=== PATIENT | female | born 1980 | race Caucasian/White ===

== ENCOUNTER 2024-05-08 13:32 | Emergency (ER) | payer OTHER, SELFPAY ==
[2024-05-08] VITALS (8 sets, daily range): BP systolic 110–139; BP diastolic 65–88; PULSE 70–89; RESP 16–18; TEMP 36.6–36.8; O2SAT 98–100; BMI 20.8
--- NOTE | 2024-05-08 13:41 | EKG12_ITS ---
Test Reason : CP Blood Pressure : / mmHG Vent. Rate : 068 BPM Atrial Rate : 068 BPM P-R Int : 138 ms QRS Dur : 074 ms QT Int : 392 ms P-R-T Axes : 029 060 049 degrees QTc Int : 416 ms Normal sinus rhythm Normal ECG Confirmed by Jerrod Pineda ([id number]), television news video editor SURYA LOBATO ([id number]) on 05/09/2024 1:36:51 PM Referred By: Antonio York Confirmed By:Jerrod Pineda
[2024-05-08 14:03] LABS: Absolute Lymphocyte Count 2.01 X10^3/uL (0.83-4.51); Absolute Neutrophil Count 6.4 X10^3/uL (2.0-7.7); Basophil# 0.09 X10^3/uL; Eosinophil# 0.08 X10^3/uL; Eosinophils% 0.9 % (0-5); Hematocrit 49.1 % (37-47); Hemoglobin 16.1 g/dL (12.0-15.0); Lymphocyte # 2.01 X10^3/ul (0.83-4.51); Lymphocyte % 21.7 % (19-41); Mean Corp Hgb Conc 32.8 g/dL (32-36); Mean Corpuscular Hgb 29.6 pg (27.0-32.0); Mean Corpuscular Volume 90.3 fL (81-99); Mean Platelet Vol. 9.4 fl (6.2-12.0); Monocyte# 0.64 X10^3/uL; Monocyte% 6.9 % (0-10); NRBC Flagged by Analyzer 0 % (0-5); Neutrophil % 69.1 % (47-70); Platelet Count 376 K/mm3 (150-450); RBC Distribution Width SD 39.7 fl (35.1-43.9); Red Blood Count 5.44 M/mm3 (4.2-5.4); White Blood Count 9.3 K/mm3 (4.4-11.0)
[2024-05-08 14:25] LABS: Anion Gap 6 (5-15); BUN 10 mg/dL (7-18); BUN/Creat Ratio 14.2 RATIO (10-20); Calcium,Total 9.9 mg/dL (8.5-10.1); Chloride 106 mmol/L (98-107); EST Glomerular Filtration Rate 97 mL/min (>60); Est Glom Filt Rate - Afr Amer 117 mL/min (>60); Estimated Creatinine Clearance 90.41 ml/min; Glucose 95 mg/dL (74-106); Potassium 3.7 mmol/L (3.5-5.1); Sodium Level 139 mmol/L (136-145); Troponin-I HS (w/2H Reflex) < 3 pg/mL (3.0-54.0)
--- NOTE | 2024-05-08 15:30 | RAD_ITS ---
INDICATION: chest pain EXAMINATION/TECHNIQUE: X-RAY - XR Chest 1 View COMPARISON: None. FINDINGS: The lungs are clear. The cardiomediastinal silhouette is unremarkable. No pleural effusion or pneumothorax. No acute osseous abnormalities. RAD/Chest 1 View (Portable) IMPRESSION: No acute radiographic abnormalities. Electronically Signed: Yehuda Colmenares MD at 16:08 EDT ,
[2024-05-08 15:59] LABS: Reflex Troponin-HS? (from REC) Y
--- NOTE | 2024-05-08 16:24 | EX.ED.DYSGE1 ---
HPI History of Present Illness Chief Complaint: Syncope Informant: patient Narrative Narrative: Patient states that 1-2 hours prior to arrival, she was with a client performing therapy, sitting down and resting, she started feeling hard and rapid palpitations, lightheaded/faint, central chest squeezing, and not feeling well. She did not lose consciousness. This went on for 15 or 20 minutes or so. The symptoms are still there as far as the chest discomfort and feeling a little lightheaded but not nearly what they were earlier. No dyspnea. No recently pain or swelling. No history of DVT or PE. She states for the past month or so she has been having mild fluttering sensations that would be relatively brief but without any of these other symptoms. She states she would get those several times a week not every day. Today, when the patient was having this episode, she eventually got done with her client and went out and saw a nurse in the office. She evaluated her vital signs, she states her blood pressure was in the 150s and her pulse was around 101, and she checked her blood sugar and it was in the 90s. This was all while she was having symptoms but a little less symptomatic than 15 minutes earlier. [facility] Medical History Psoriasis Valencia's disease Allergy/AdvReac Type Severity Reaction Status Date / Time Sulfa (Sulfonamide Allergy Hives Verified 05/08/24 13:38 Antibiotics) Family History other other (No first-degree relatives with CAD/AR less than 55) Social History household members: spouse housing: house Smoking Status: Never smoker ROS ROS ED Constitutional Constitutional ED: Denies chills or fever(s) Eyes Eyes: Denies change in vision or diplopia ENT ENT ED: Denies rhinorrhea or sore throat Cardiovascular Cardiovascular: Reports chest pain, lightheadedness, palpitations and racing heartbeat; Denies radiating jaw, neck or arm pain or syncope Respiratory/Chest Respiratory/Chest: Denies cough or dyspnea Gastrointestinal Gastrointestinal: Denies abdominal pain, diarrhea, nausea or vomiting Genitourinary Genitourinary ED: Denies dysuria or hematuria Musculoskeletal Musculoskeletal: Denies back pain or neck pain Integumentary Denies abscess or rash Neurologic Neurologic: Denies headache(s), paresthesias or weakness Psychiatric Psychiatric: Denies anxiety or suicidal thoughts EXAM Physical Exam Const Vital Signs: 05/08/24 13:34 05/08/24 14:14 05/08/24 14:14 Temperature 98.2 F Temperature Source Oral Pulse Rate 89 Pulse Rate [Lying] Pulse Rate [Sitting (for 1 minute prior to obtaining)] Pulse Rate [Standing (for 1 minute prior to obtaining)] Respiratory Rate 16 Respiratory Effort Normal Non-Labored Respiratory Pattern Normal Blood Pressure 139/85 H Blood Pressure [Lying] Blood Pressure [Sitting (for 1 minute prior to obtaining)] Blood Pressure [Standing (for 1 minute prior to obtaining)] Blood Pressure Mean 103 Blood Pressure Mean [Lying] Blood Pressure Mean [Sitting (for 1 minute prior to obtaining)] Blood Pressure Mean [Standing (for 1 minute prior to obtaining)] Pulse Ox 100 100 Oxygen Delivery Method Room Air 05/08/24 14:21 05/08/24 14:34 05/08/24 15:00 Temperature Temperature Source Pulse Rate 75 73 Pulse Rate [Lying] 70 Pulse Rate [Sitting (for 1 minute prior to obtaining)] 75 Pulse Rate [Standing (for 1 minute prior to obtaining)] 78 Respiratory Rate 18 16 Respiratory Effort Respiratory Pattern Blood Pressure 118/78 113/65 Blood Pressure [Lying] 118/78 Blood Pressure [Sitting (for 1 minute prior to obtaining)] 128/88 H Blood Pressure [Standing (for 1 minute prior to obtaining)] 117/88 H Blood Pressure Mean 91 81 Blood Pressure Mean [Lying] 91 Blood Pressure Mean [Sitting (for 1 minute prior to obtaining)] 101 Blood Pressure Mean [Standing (for 1 minute prior to obtaining)] 97 Pulse Ox 98 98 Oxygen Delivery Method Room Air Room Air 05/08/24 16:00 Temperature Temperature Source Pulse Rate 76 Pulse Rate [Lying] Pulse Rate [Sitting (for 1 minute prior to obtaining)] Pulse Rate [Standing (for 1 minute prior to obtaining)] Respiratory Rate 16 Respiratory Effort Respiratory Pattern Blood Pressure 110/75 Blood Pressure [Lying] Blood Pressure [Sitting (for 1 minute prior to obtaining)] Blood Pressure [Standing (for 1 minute prior to obtaining)] Blood Pressure Mean 86 Blood Pressure Mean [Lying] Blood Pressure Mean [Sitting (for 1 minute prior to obtaining)] Blood Pressure Mean [Standing (for 1 minute prior to obtaining)] Pulse Ox 98 Oxygen Delivery Method Room Air Positive well nourished and well developed Constitutional Narrative: Well-appearing General Appearance ED: well developed and NAD HEENT Reports moist mucous membranes normocephalic and atraumatic Eyes PERRL and EOMs intact bilaterally Neck full ROM and supple Chest Wall inspection of chest normal and palpation of chest normal Resp normal respiratory effort and clear to auscultation bilaterally Cardio regular rate, regular rhythm and no murmurs Rate: Negative for tachycardic GI non-tender and non-distended Auscultation: normoactive bowel sounds Palpation: soft Back/Spine no CVA tenderness General Back: other FROM Extremity normal to inspection General Extremety ED: Negative for edema, pulses abnormal or tenderness General Extremity: Negative for edema or pulses abnormal Neuro oriented x3, CN's II-XII intact bilaterally and no sensory deficits noted Sensorium / Orientation: awake and alert Motor Exam: strength 5/5 throughout Skin no rashes or lesions noted and no wounds MDM MDM MDM Narrative Medical decision making narrative: Cardiac workup performed. 1 view chest x-ray on my interpretation is normal, her EKG on my interpretation is completely normal, there is no old available for comparison. She was observed while we obtain blood work, her initial troponin is less than 3, we did a 2-hour delta troponin continue to observe her, she had no recurrent major symptoms or telemetry events. Her repeat troponin also returned negative less than 3. She feels fine. I spoke with Dr. Pineda, unfortunately we do not have any Holter monitors to placed on patient's when discharging right now, so he advises having the patient call the office at 9 AM and they will schedule her for getting a monitor placed. In my opinion it is helpful that a nurse was able to check her vital signs while she was symptomatic prior to getting here to the ER, arguing against a vagal phenomenon/episode. Lab Data Attestation: I reviewed the patient's lab results. Labs: Laboratory Results - last 24 hr 05/08/24 05/08/24 13:50 16:05 WBC 9.3 RBC 5.44 H Hgb 16.1 H Hct 49.1 H MCV 90.3 MCH 29.6 MCHC 32.8 RDW Std Deviation 39.7 RDW Coeff of [place] 12.0 Plt Count 376 MPV 9.4 Immature Gran % (Auto) 0.400 Neut % (Auto) 69.1 Lymph % (Auto) 21.7 [place] % (Auto) 6.9 Eos % (Auto) 0.9 Baso % (Auto) 1.0 Absolute Neuts (auto) 6.4 Absolute Lymphs (auto) 2.01 Nucleated RBC % 0 Sodium 139 Potassium 3.7 Chloride 106 Carbon Dioxide 27.0 Anion Gap 6 BUN 10 Creatinine 0.70 Estim Creat Clear Calc 90.41 Est GFR (MDRD) Af Amer 117 Est GFR (MDRD) Non-Af 97 BUN/Creatinine Ratio 14.2 Glucose 95 Calcium 9.9 Troponin I High Sens < 3 L < 3 L Radiography Diagnostic Testing: Clinical Impression(s) from Imaging Studies Chest X-Ray 05/08/24 15:30 IMPRESSION: No acute radiographic abnormalities. Electronically Signed: Yehuda Colmenares MD at 16:08 EDT , Rhythm Strip Rhythm Strip: Sinus Rhythm Rate: 65 Ectopy: None EKG Initial EKG: Attestation: I personally reviewed and interpreted this EKG as follows: Interpretation: Sinus Rhythm and No Acute Injury Pattern Comments: Normal EKG Prior EKG tracings: not available for review Prior: No Prior Management Discussion w/another healthcare provider: Rn Clinical Resource (Cardiology) Discharge Plan Triage Chief Complaint: Syncope ED Provider: Antonio York Dx/Rx/DC Orders Clinical Impression: Heart palpitations, Chest pain, unspecified, Near syncope Instructions: ED Palpitations Primary Care Provider: Nehemiah Ramos,Out of Referrals: Jerrod Pineda MD [Med Staff - Active Staff] - As soon as possible (Call 9 AM tomorrow) Nehemiah Ramos,Out of [Primary Care Provider] - Activity Restrictions/Additional Instructions: Call cardiology in the morning, they will direct you for getting a monitor scheduled/placed. Print Language: Slovak Disposition Disposition: Home, Self Care
[2024-05-08 16:59] LABS: Troponin-I HS < 3 pg/mL (3.0-54.0)
== END 2024-05-08 17:27 | disposition home or self-care (01) ==
PROVIDERS: Emergency Provider Emergency Medicine; Referring Provider Emergency Medicine; Visit Provider Emergency Medicine
DX: R00.2 Palpitations (principal); R55 Syncope and collapse; R07.9 Chest pain, unspecified; Z88.2 Allergy status to sulfonamides
CPT/HCPCS: 71045; 80048; 84484; 85025; 93005; 99285; A4216